=== PATIENT | female | born 1995 | race Caucasian/White ===

== ENCOUNTER 2017-12-09 09:01 | Emergency (ER) | payer SELFPAY ==
[2017-12-09 09:26] VITALS: BP 116/83
--- NOTE | 2017-12-09 09:48 | UC ---
Throat Pain/Nasal Levon HPI - HPI Summary HPI Summary: pain with swallowing for the last week. Difficulty with solids, able to swallow liquids, no fever, chills or change in voice noted - History of Current Complaint Chief Complaint: UCRespiratory Stated Complaint: SORE THROAT,COUGH Time Seen by Provider: 12/09/17 09:14 Hx Obtained From: Patient Hx Last Menstrual Period: 2-3 wks ?: No Onset/Duration: Sudden Onset Severity: Moderate Pain Intensity: 8 Associated Signs & Symptoms: Positive: Dysphagia Related History: Seasonal Allergies, Smoking - Allergies/Home Medications Allergies/Adverse Reactions: Allergies Allergy/AdvReac Type Severity Reaction Status Date / Time latex Allergy Rash Verified 12/09/17 09:04 nickel Allergy Swelling Verified 12/09/17 09:26 Penicillins Allergy Swelling Verified 12/09/17 09:04 Of Face,Lips,& Throat Home Medications: Home Medications Anti-Allergy Med With Pain Med 1 tab PO DAILY 12/09/17 [History Confirmed ] PMH/Surg Hx/FS Hx/Imm Hx Previously Healthy: Yes Other History Of: Negative For: Anticoagulant Therapy - Surgical History Surgical History: Yes Surgery Procedure, Year, and Place: WISDOM TEETH - Social History Alcohol Use: Occasionally Substance Use Type: None Smoking Status (MU): Light Every Day Tobacco Smoker Review of Systems Constitutional: Negative Skin: Negative Eyes: Negative ENT: Other - dysphagia for the last week Respiratory: Cough Motor: Negative Neurovascular: Negative Musculoskeletal: Negative Neurological: Negative Psychological: Negative Is Patient Immunocompromised?: No All Other Systems Reviewed And Are Negative: Yes Physical Exam Triage Information Reviewed: Yes Appearance: Well-Appearing Vital Signs: Initial Vital Signs Temp 36.8 C 12/09/17 09:16 Pulse 115 12/09/17 09:16 Resp 20 12/09/17 09:16 BP 116/83 12/09/17 09:16 Pulse Ox 100 12/09/17 09:16 Vital Signs Reviewed: Yes Eye Exam: Normal Eyes: Positive: Conjunctiva Clear ENT Exam: Normal ENT: Positive: Normal ENT inspection Dental Exam: Normal Neck exam: Normal Respiratory: Positive: Chest non-tender, Lungs clear Cardiovascular Exam: Normal Abdominal Exam: Normal Abdomen Description: Positive: Nontender Bowel Sounds: Positive: Present Musculoskeletal Exam: Normal Neurological Exam: Normal Psychological Exam: Normal Skin Exam: Normal Throat Pain/Nasal Course/Dx - Course Course Of Treatment: lateral neck film shows nodular density superior portion of the epiglottis , possible mucous - Differential Dx/Diagnosis Provider Diagnoses: dysphagia, with abnormality of the epiglottis Discharge - Sign-Out/Discharge Documenting (check all that apply): Patient Departure - Discharge Plan Condition: Good Disposition: HOME Patient Education Materials: Dysphagia (ED) Referrals: Lashaun Nielson NP [Primary Care Provider] - Russ Brower MD [Medical Doctor] - Additional Instructions: given patients persistent and nonworsening symptoms to refer to ENT in the AM for evaluation - Billing Disposition and Condition Condition: GOOD Disposition: Home
--- NOTE | 2017-12-09 10:35 | RAD ---
Indication: Left-sided throat pain and dysphagia Comparison: None. Technique: AP and lateral views of the neck with soft tissue technique. Report: There is a nodular density overlying the epiglottis seen only on the lateral view measuring approximately 1 x 1.8 cm in the sagittal plane. Otherwise the pharyngeal, laryngeal, and tracheal air columns are normal in contour. The epiglottis is normal. The cervical spine and prevertebral soft tissues are normal. IMPRESSION: Questionable nodular density adjacent to the superior posterior aspect of the epiglottis. This finding may simply be mucus in a patient with an upper respiratory infection. Recommend direct visualization. If the patient's symptoms persist, follow-up imaging is recommended.
== END 2017-12-09 10:59 | disposition home or self-care (01) ==
LOC: UCCORT 09:01
DX: R13.10 Dysphagia, unspecified (principal); J38.7 Other diseases of larynx; R05 Cough; J02.9 Acute pharyngitis, unspecified; F17.200 Nicotine dependence, unspecified, uncomplicated; Z91.040 Latex allergy status; Z91.09 Other allergy status, other than to drugs and biological substances; Z88.0 Allergy status to penicillin
CPT/HCPCS: 70360; 99211; G0463

== ENCOUNTER 2017-12-11 10:08 | Emergency (ER) | payer OTHER ==
[2017-12-11 11:09] VITALS: BP 116/72
--- NOTE | 2017-12-11 11:26 | UC ---
Eye Complaint HPI - HPI Summary HPI Summary: right eye redness and discharge x 1 day no eye pain , + itchy no change if vision - History of Current Complaint Chief Complaint: UCEye Stated Complaint: RIGHT EYE COMPLAINT Time Seen by Provider: 12/11/17 11:02 Hx Obtained From: Patient Hx Last Menstrual Period: 11/20/17 Onset/Duration: Gradual Onset, Lasting Days - 1, Still Present Timing: Constant Severity Initially: Moderate Severity Currently: Moderate Pain Intensity: 0 Location of Injury: Conjunctiva Aggravating Factor(s): Nothing Alleviating Factor(s): Nothing Associated Signs And Symptoms: Positive: Drainage (Purulent) - right eye. Negative: Photophobia, Drainage (Clear), Vision Impairment Bilateral, Vision Impairment Right, Vision Impairment Left - Allergies/Home Medications Allergies/Adverse Reactions: Allergies Allergy/AdvReac Type Severity Reaction Status Date / Time latex Allergy Rash Verified 12/11/17 11:10 nickel Allergy Swelling Verified 12/11/17 11:10 Penicillins Allergy Swelling Verified 12/11/17 11:10 Of Face,Lips,& Throat PMH/Surg Hx/FS Hx/Imm Hx - Additional Past Medical History Additional PMH: hearing loss, allergies Other History Of: Negative For: Anticoagulant Therapy - Surgical History Surgical History: None Surgery Procedure, Year, and Place: WISDOM TEETH - Family History Known Family History: Negative: Diabetes - Social History Alcohol Use: Occasionally Substance Use Type: None Smoking Status (MU): Heavy Every Day Tobacco Smoker Type: Cigarettes Amount Used/How Often: 1/2 ppd Length of Time of Smoking/Using Tobacco: since age 18 Have You Smoked in the Last Year: Yes Review of Systems Constitutional: Negative Skin: Negative Eyes: Drainage, Eye Redness ENT: Negative Is Patient Immunocompromised?: No All Other Systems Reviewed And Are Negative: Yes Physical Exam Triage Information Reviewed: Yes Appearance: Well-Appearing, No Pain Distress, Well-Nourished Vital Signs: Initial Vital Signs Temp 98 F 12/11/17 10:57 Pulse 121 12/11/17 10:57 Resp 18 12/11/17 10:57 BP 116/72 12/11/17 10:57 Pulse Ox 100 12/11/17 10:57 Eye Exam: Normal Eyes: Positive: Conjunctiva Inflamed - right eye, Discharge - right eye ENT: Positive: Normal ENT inspection, Hearing grossly normal, Pharynx normal Neck exam: Normal Neck: Positive: Supple, Nontender, No Lymphadenopathy Respiratory: Positive: Chest non-tender, Lungs clear, Normal breath sounds, No respiratory distress Cardiovascular: Positive: RRR, No Murmur, Pulses Normal Musculoskeletal Exam: Normal Neurological Exam: Normal Eye Complaint Course/Dx - Differential Dx/Diagnosis Provider Diagnoses: conjunctivitis right eye Discharge - Sign-Out/Discharge Documenting (check all that apply): Patient Departure - Discharge Plan Condition: Stable Disposition: HOME Prescriptions: Gentamicin 0.3% OPHTH.SOLN* 1 drop RIGHT EYE Q4H #1 btl Patient Education Materials: Conjunctivitis (ED) Forms: *Work Release Referrals: Lashaun Nielson NP [Primary Care Provider] - If Needed - Billing Disposition and Condition Condition: STABLE Disposition: Home
== END 2017-12-11 11:29 | disposition home or self-care (01) ==
LOC: UCCORT 10:08
DX: H10.9 Unspecified conjunctivitis (principal); Z88.0 Allergy status to penicillin; F17.210 Nicotine dependence, cigarettes, uncomplicated
CPT/HCPCS: 99212; G0463

== ENCOUNTER 2018-05-08 08:27 | Emergency (ER) | payer SELFPAY ==
[2018-05-08 08:47] VITALS: BP 130/92
--- NOTE | 2018-05-08 08:58 | UC ---
General HPI - HPI Summary HPI Summary: C/O sore throat and congestion for the past 3 days. +chills. Subjective fever. +cough. No sick contacts. Difficulty swallowing solids. Adequate liquid intake. Had some abdominal discomfort yesterday. No N/V/D. No rash. No sick contacts. No urinary symptoms. PMHx and meds: reviewed - History of Current Complaint Chief Complaint: UCGeneralIllness Stated Complaint: SORE THROAT Time Seen by Provider: 05/08/18 08:42 Hx Last Menstrual Period: Pain Intensity: 6 - Allergy/Home Medications Allergies/Adverse Reactions: Allergies Allergy/AdvReac Type Severity Reaction Status Date / Time latex Allergy Rash Verified 05/08/18 08:38 nickel Allergy Swelling Verified 05/08/18 08:38 Penicillins Allergy Swelling Verified 05/08/18 08:38 Of Face,Lips,& Throat PMH/Surg Hx/FS Hx/Imm Hx Previously Healthy: Yes Other History Of: Negative For: Anticoagulant Therapy - Surgical History Surgical History: None Surgery Procedure, Year, and Place: WISDOM TEETH - Family History Known Family History: Negative: Diabetes - Social History Alcohol Use: Occasionally Substance Use Type: None Smoking Status (MU): Heavy Every Day Tobacco Smoker Type: Cigarettes Amount Used/How Often: 1/2 ppd Length of Time of Smoking/Using Tobacco: since age 18 Have You Smoked in the Last Year: Yes Review of Systems All Other Systems Reviewed And Are Negative: Yes Is Patient Immunocompromised?: No - Comments Additional Review of Systems Comments: As mentioned in HPI Physical Exam Triage Information Reviewed: Yes Appearance: Well-Appearing Vital Signs: Initial Vital Signs Temp 97.8 F 05/08/18 08:41 Pulse 109 05/08/18 08:41 Resp 16 05/08/18 08:41 BP 130/92 05/08/18 08:41 Pulse Ox 99 05/08/18 08:41 Eyes: Positive: Conjunctiva Clear ENT: Positive: Pharyngeal erythema, Nasal congestion, Tonsillar swelling Neck exam: Normal Neck: Positive: Enlarged Nodes @ - anterior cervical chain Respiratory: Positive: Chest non-tender, Normal breath sounds, No respiratory distress Cardiovascular: Positive: RRR, No Murmur Abdomen Description: Positive: Nontender, Soft Course/Dx - Course Course Of Treatment: This is a 23 yr old with sore throat. Assesment. Strep throat: positive. Group A strep pharyngitis. Plan. Start Antibiotics as prescribed. Continue to drink plenty of fluids. Continue ibuprofen as needed as directed for pain/fever. Can return to work after 24 hours on antibiotics. If symptoms persist or worsen, call primary for further evaluation - Diagnoses Provider Diagnosis: Pharyngitis due to group A beta hemolytic Streptococci Discharge - Sign-Out/Discharge Documenting (check all that apply): Patient Departure All imaging exams completed and their final reports reviewed: No - Discharge Plan Condition: Good Disposition: HOME Prescriptions: Azithromycin TAB* [Zithromax TAB (Z-YAIR) 250 mg #6 tabs] 500 mg PO DAILY #5 tab Patient Education Materials: Strep Throat (DC) Forms: *Work Release Referrals: Lashaun Nielson NP [Primary Care Provider] - Additional Instructions: Start Antibiotics as prescribed Continue to drink plenty of fluids Continue ibuprofen as needed as directed for pain/fever Can return to work after 24 hours on antibiotics If symptoms persist or worsen, call primary for further evaluation - Billing Disposition and Condition Condition: GOOD Disposition: Home
--- NOTE | 2018-05-09 11:04 | UC ---
- Progress Note Progress Note: There was no x-ray ordered on May 08, 2018 therefore there is no discrepancy. Course/Dx - Diagnoses Provider Diagnoses: Pharyngitis due to group A beta hemolytic Streptococci Discharge - Sign-Out/Discharge Documenting (check all that apply): Patient Departure All imaging exams completed and their final reports reviewed: Yes - Discharge Plan Condition: Good Disposition: HOME Prescriptions: Azithromycin TAB* [Zithromax TAB (Z-YAIR) 250 mg #6 tabs] 500 mg PO DAILY #5 tab Patient Education Materials: Strep Throat (DC) Forms: *Work Release Referrals: Lashaun Nielson NP [Primary Care Provider] - Additional Instructions: Start Antibiotics as prescribed Continue to drink plenty of fluids Continue ibuprofen as needed as directed for pain/fever Can return to work after 24 hours on antibiotics If symptoms persist or worsen, call primary for further evaluation - Billing Disposition and Condition Condition: GOOD Disposition: Home
--- NOTE | 2018-05-09 11:07 | UC ---
- Progress Note Progress Note: . Course/Dx - Diagnoses Provider Diagnoses: Pharyngitis due to group A beta hemolytic Streptococci Discharge - Sign-Out/Discharge Documenting (check all that apply): Patient Departure All imaging exams completed and their final reports reviewed: No Studies - Discharge Plan Condition: Good Disposition: HOME Prescriptions: Azithromycin TAB* [Zithromax TAB (Z-YAIR) 250 mg #6 tabs] 500 mg PO DAILY #5 tab Patient Education Materials: Strep Throat (DC) Forms: *Work Release Referrals: Lashaun Nielson NP [Primary Care Provider] - Additional Instructions: Start Antibiotics as prescribed Continue to drink plenty of fluids Continue ibuprofen as needed as directed for pain/fever Can return to work after 24 hours on antibiotics If symptoms persist or worsen, call primary for further evaluation - Billing Disposition and Condition Condition: GOOD Disposition: Home
== END 2018-05-08 09:38 | disposition home or self-care (01) ==
LOC: UCEAST 08:27
DX: J02.0 Streptococcal pharyngitis (principal); B95.0 Streptococcus, group A, as the cause of diseases classified elsewhere; Z88.0 Allergy status to penicillin
CPT/HCPCS: 84702; 87651; 99212; G0463

== ENCOUNTER 2018-07-15 10:55 | Emergency (ER) | payer OTHER ==
[2018-07-15 11:22] VITALS: BP 123/74
[2018-07-15 13:08] LABS: Influenza A Molecular NEGATIVE (Negative); Influenza B Molecular NEGATIVE (Negative)
--- NOTE | 2018-07-15 13:10 | ED ---
GI/ HPI - HPI Summary HPI Summary: 23 year old female presents with nausea for the past couple days. she is concerned she is or has the flu. she admits to occasionally epigastric pain but none currently. she admits to occasionally headache but not now. she states has occasionally acid reflux symptoms. denies any diarrhea or urinary symptoms. has an iud in place. no fever or sore throat. - History of Current Complaint Chief Complaint: UCAbdominalPain Time Seen by Provider: 07/15/18 12:58 Stated Complaint: STOMACH ISSUES Hx Last Menstrual Period: 06/10/18 Pain Intensity: 3 - Allergy/Home Medications Allergies/Adverse Reactions: Allergies Allergy/AdvReac Type Severity Reaction Status Date / Time latex Allergy Rash Verified 07/15/18 11:22 nickel Allergy Swelling Verified 07/15/18 11:22 Penicillins Allergy Swelling Verified 07/15/18 11:22 Of Face,Lips,& Throat PMH/Surg Hx/FS Hx/Imm Hx Endocrine/Hematology History: Denies: Hx Anticoagulant Therapy, Hx Diabetes, Hx Thyroid Disease Cardiovascular History: Denies: Hx Hypertension Respiratory History: Denies: Hx Asthma, Hx Chronic Obstructive Pulmonary Disease (COPD) GI History: Denies: Hx Ulcer - Surgical History Surgery Procedure, Year, and Place: WISDOM TEETH Infectious Disease History: No Infectious Disease History: Denies: Hx Hepatitis, Hx Human Immunodeficiency Virus (HIV), Traveled Outside the [place] in Last 30 Days - Family History Known Family History: Negative: Diabetes - Social History Alcohol Use: Occasionally Substance Use Type: Reports: None Hx Tobacco Use: Yes Smoking Status (MU): Heavy Every Day Tobacco Smoker Type: Cigarettes Amount Used/How Often: 1/2 ppd Length of Time of Smoking/Using Tobacco: since age 18 Have You Smoked in the Last Year: Yes Review of Systems Negative: Fever Negative: Chest Pain Negative: Shortness Of Breath Positive: Abdominal Pain - occassionally, Vomiting, Nausea. Negative: Diarrhea Positive: Headache All Other Systems Reviewed And Are Negative: Yes Physical Exam Triage Information Reviewed: Yes Vital Signs On Initial Exam: Initial Vitals Temp Pulse Resp BP Pulse Ox 97.6 F 101 18 123/74 100 07/15/18 11:18 07/15/18 11:18 07/15/18 11:18 07/15/18 11:18 07/15/18 11:18 Vital Signs Reviewed: Yes Appearance: Positive: Well-Appearing Skin: Positive: Warm, Dry Head/Face: Positive: Normal Head/Face Inspection Eyes: Positive: Normal, Conjunctiva Clear ENT: Positive: Pharynx normal Respiratory/Lung Sounds: Positive: Clear to Auscultation, Breath Sounds Present Cardiovascular: Positive: Normal, RRR Abdomen Description: Positive: Nontender, Soft Bowel Sounds: Positive: Present Musculoskeletal: Positive: Normal Neurological: Positive: Normal Psychiatric: Positive: Normal Diagnostics - Vital Signs Vital Signs Temp Pulse Resp BP Pulse Ox 07/15/18 11:18 97.6 F 101 18 123/74 100 - Laboratory Lab Results: Lab Results 07/15/18 07/15/18 07/15/18 Range/Units 12:55 12:56 12:59 POC Urine Color Yellow POC Urine Clarity Clear POC Urine pH 5.5 (5-9) POC Ur Specif Lindstrom >= 1.030 (1.010-1.030) POC Urine Protein Negative (Negative) POC Ur Glucose (UA) Negative (Negative) POC Urine Ketones Trace A (Negative) POC Urine Blood Negative (Negative) POC Urine Nitrite Negative (Negative) POC Urine Bilirubin Negative (Negative) POC Urine Urobilinogen 0.2 (Negative) POC U Leukocyte Esteras Negative (Negative) POC Ur Test Negative (Negative) Influenza A (Rapid) Negative (Negative) Influenza B (Rapid) Negative (Negative) Lab Statement: Any lab studies that have been ordered have been reviewed, and results considered in the medical decision making process. GIGU Course/Dx - Course Course Of Treatment: 23 year old female presents with nausea for the past couple days. she is concerned she is or has the flu. she admits to occasionally epigastric pain but none currently. she admits to occasionally headache but not now. she states has occasionally acid reflux symptoms. denies any diarrhea or urinary symptoms. has an iud in place. no fever or sore throat. on exam abd soft nontender. normal neuro exam. flu neg. urine normal. urine preg neg. discussed will add zofran for nausea. also suggest try an antacid as may be acid reflux related. patient understand and agrees with plan. - Diagnoses Differential Diagnoses - Female: Gastroenteritis (Viral), Gastroenteritis ( Bacterial), Vomiting Provider Diagnoses: Nausea Discharge - Sign-Out/Discharge Documenting (check all that apply): Patient Departure All imaging exams completed and their final reports reviewed: No Studies - Discharge Plan Condition: Good Disposition: HOME Prescriptions: Ondansetron ODT TAB* [Zofran 4 MG Odt TAB*] 4 mg PO Q6H PRN #20 tab.odt PRN Reason: Nausea Patient Education Materials: Acute Nausea and Vomiting (ED) Forms: *Work Release Referrals: Lashaun Nielson EVENT SET UP SPECIALIST [Primary Care Provider] - Additional Instructions: Can take Zofran every 6 hours as needed for nausea may want to try an antacid Drink small amounts of fluid as tolerated Take ibuprofen or Tylenol for pain as needed every 6 hours Follow up with primary within 5 days Return to ED if develop any new or worsening symptoms - Billing Disposition and Condition Condition: GOOD Disposition: Home - Attestation Statements Provider Attestation: Per institutional requirements, I have reviewed the chart, however, I was not consulted specifically or made aware of this patient by the midlevel provider. I did not personally evaluate, interact with , or disposition this patient.
== END 2018-07-15 13:24 | disposition home or self-care (01) ==
LOC: UCEAST 10:55
DX: R11.0 Nausea (principal); R10.13 Epigastric pain; Z32.02 Encounter for pregnancy test, result negative; Z91.040 Latex allergy status; Z88.0 Allergy status to penicillin; Z91.048 Other nonmedicinal substance allergy status; F17.210 Nicotine dependence, cigarettes, uncomplicated
CPT/HCPCS: 81003; 84702; 99212; G0463

== ENCOUNTER 2019-02-25 19:55 | Emergency (ER) | payer OTHER ==
--- NOTE | 2019-02-25 21:04 | ED ---
Lower Extremity - HPI Summary HPI Summary: Pt is a 23 y/o F presenting to the ED with a chief complaint of R foot pain. She states she slipped on water on the floor, is unsure how she landed, but she thinks her R foot is broken. She cannot bear weight, denies head injury or LOC. She also c/o a bruise on her R knee. She took 1,000mg Tylenol HEALTH AND WELLNESS DIRECTOR w/o relief. - History of Current Complaint Chief Complaint: EDExtremityLower Stated Complaint: FOOT INJURY PER PT Time Seen by Provider: 02/25/19 20:36 Hx Obtained From: Patient Hx Last Menstrual Period: 06/10/18 Mechanism Of Injury: Fall From A Standing Position Onset of Pain: Immediate Onset/Duration: Still Present Severity Initially: Moderate Severity Currently: Moderate Pain Intensity: 5 Pain Scale Used: 0-10 Numeric Timing: Constant, Lasting Hours Location: Is Discrete @ - R foot Associated Signs And Symptoms: Positive: Bruising, Knee Pain Aggravating Factor(s): Movement, Weight Bearing Alleviating Factor(s): Nothing Able to Bear Weight: No - Allergies/Home Medications Allergies/Adverse Reactions: Allergies Allergy/AdvReac Type Severity Reaction Status Date / Time latex Allergy Rash Verified 02/25/19 20:56 nickel Allergy Swelling Verified 02/25/19 20:56 Penicillins Allergy Swelling Verified 02/25/19 20:56 Of Face,Lips,& Throat PMH/Surg Hx/FS Hx/Imm Hx Previously Healthy: Yes Endocrine/Hematology History: Denies: Hx Anticoagulant Therapy, Hx Diabetes, Hx Thyroid Disease Cardiovascular History: Denies: Hx Hypertension Respiratory History: Denies: Hx Asthma, Hx Chronic Obstructive Pulmonary Disease (COPD) GI History: Denies: Hx Ulcer - Surgical History Surgery Procedure, Year, and Place: WISDOM TEETH Infectious Disease History: No Infectious Disease History: Denies: Hx Hepatitis, Hx Human Immunodeficiency Virus (HIV), Traveled Outside the [place] in Last 30 Days - Family History Known Family History: Negative: Diabetes - Social History Alcohol Use: Occasionally Hx Substance Use: No Substance Use Type: Reports: None Hx Tobacco Use: Yes Smoking Status (MU): Heavy Every Day Tobacco Smoker Type: Cigarettes Amount Used/How Often: 1/2 ppd Length of Time of Smoking/Using Tobacco: since age 18 Have You Smoked in the Last Year: Yes Review of Systems Positive: Arthralgia, Myalgia Positive: Bruising Neurological: Negative - head injury, LOC All Other Systems Reviewed And Are Negative: Yes Physical Exam - Summary Physical Exam Summary: Constitutional: Well-developed, Well-nourished, Alert. (-) Distressed Skin: Warm, Dry HENT: Normocephalic; Atraumatic Eyes: Conjunctiva normal Neck: Musculoskeletal ROM normal neck. (-) JVD, (-) Stridor, (-) Tracheal deviation Cardio: Rhythm regular, rate normal, Heart sounds normal; Intact distal pulses; The pedal pulses are 2+ and symmetric. Radial pulses are 2+ and symmetric. (-) Murmur Pulmonary/Chest wall: Effort normal. (-) Respiratory distress, (-) Wheezes, (-) Rales Abd: Soft, (-) tenderness, (-) Distension, (-) Guarding, (-) Rebound Musculoskeletal: R foot erythema and edema in the mid-foot. Limited ROM with foot eversion and inversion. Tenderness in mid-foot. No proximal tenderness. DP/ PT pulses 2+. Lymph: (-) Cervical adenopathy Neuro: Alert, Oriented x3 Psych: Mood and affect Normal Triage Information Reviewed: Yes Vital Signs On Initial Exam: Initial Vitals Temp Pulse Resp BP Pulse Ox 98.5 F 100 16 121/60 100 02/25/19 19:57 02/25/19 19:57 02/25/19 19:57 02/25/19 19:57 02/25/19 19:57 Vital Signs Reviewed: Yes Procedures - Sedation Patient Received Moderate/Deep Sedation with Procedure: No Diagnostics - Vital Signs Vital Signs Temp Pulse Resp BP Pulse Ox 02/25/19 19:57 98.5 F 100 16 121/60 100 - Laboratory Lab Statement: Any lab studies that have been ordered have been reviewed, and results considered in the medical decision making process. - Radiology Foot XR Radiology Interpretation Completed By: ED Physician Summary of Radiographic Findings: Fracture to distal phalanx of the fifth metatarsal. No intra-articular involvement. Pending official radiology report. Lower Extremity Course/Dx - Course Course Of Treatment: Patient is here with a foot injury. Patient had an x-ray which showed a distal metatarsal fracture on the fifth toe. Patient was placed in a cam boot, made nonweightbearing, given crutches, and given orthopedic surgery follow-up. - Diagnoses Provider Diagnoses: Metatarsal fracture Discharge ED - Sign-Out/Discharge Documenting (check all that apply): Patient Departure - Discharge Plan Condition: Stable Disposition: HOME Prescriptions: traMADol TAB* [Ultram*] 50 mg PO Q8HR PRN #12 tab MDD 150 mg PRN Reason: Pain - Severe Patient Education Materials: Foot Fracture in Adults (ED) Forms: *Work Release Referrals: Lashaun Nielson NP [Primary Care Provider] - Russell Magallon MD [Medical Doctor] - Additional Instructions: Please follow up with Dr. Magallon of Orthopedics about your fractured foot. Take Ibuprofen as needed for pain, and if that does not work, take the pain medication prescribed to you as instructed. Please use your crutches to take the weight bearing off of your R foot. Return to the emergency department with any new or worsening symptoms, including fever or shortness of breath. - Billing Disposition and Condition Condition: STABLE Disposition: Home - Attestation Statements Document Initiated by Caibe: Yes Documenting Scribe: Sunshine Dodson Provider For Whom Hoa is Documenting (Include Credential): Angelito Brandon MD. Scribe Attestation: Sunshine Chairez, scribed for Angelito Brandon MD. on 02/25/19 at 2142. Scribe Documentation Reviewed: Yes Provider Attestation: The documentation as recorded by the scribe, Sunshine Dodson accurately reflects the service I personally performed and the decisions made by , Angelito Brandon MD. Status of Scribe Document: Viewed
[2019-02-25] MEDS: oxyCODONE TAB* 5 MG TAB PO ONE (21:49)
[2019-02-25 21:54] VITALS: BP 118/60
== END 2019-02-25 21:37 | disposition home or self-care (01) ==
LOC: ED 19:55
DX: S92.354A Nondisplaced fracture of fifth metatarsal bone, right foot, initial encounter for closed fracture (principal); W01.0XXA Fall on same level from slipping, tripping and stumbling without subsequent striking against object, initial encounter; Y92.9 Unspecified place or not applicable; F17.210 Nicotine dependence, cigarettes, uncomplicated; Z88.0 Allergy status to penicillin; Z91.040 Latex allergy status
CPT/HCPCS: 99282; A9270-GY

== ENCOUNTER 2019-06-14 18:15 | Emergency (ER) | payer SELFPAY ==
--- OUTSIDE RECORDS SUMMARY | 2019-06-14 18:31 | XMS REPORT | Continuity of Care Document ---
:1995 External Reference #:[id number] Author Name Manuelito Winter MD Address [address] [place] [id number] Problems Active Problems Provider Date Obsessive-compulsive disorder Onset: 09/02/2018 Tobacco dependence syndrome Onset: 08/19/2018 Adult health examination Onset: 08/19/2018 Smoker Manuelito Winter MD Onset: 05/09/2019 Social History Type Date Description Comments Sex Unknown Tobacco Use Start: Unknown Patient is a current smoker, smokes every day Smoking Status Reviewed: 05/09/19 Patient is a current smoker, smokes every day Allergies, Adverse Reactions, Alerts Active Allergies Reaction Severity Comments Date Latex Disorder of skin 01/31/2019 Nickel swelling 01/31/2019 Penicillin hospitalization 01/31/2019 Medications Active Medications SIG Qnty Indications Ordering Provider Date Famciclovir 1 po tid 21tabs Manuelito Winter MD 05/09/2019 250mg Tablets Sleep Aid ASTRID Gusman 02/05/2019 25mg Capsules Prozac 1 every morning 30caps Unknown 09/03/2018 20mg Capsules Oral Multiple Vitamin 1 daily Oral 30tabs Unknown 08/19/2018 Tablets Zinc 1 tab by mouth Unknown 25mg Tablets every day Immunizations CPT Code Status Date Vaccine Lot # [id number] Given 05/09/2019 Flu < 65 years [id number] Vital Signs Date Vital Result Comment 05/09/2019 12:09pm BP Systolic 110 mmHg BP Diastolic 56 mmHg Height 59.75 inches 4'11.75" Weight 109.00 lb Heart Rate 112 /min Body Temperature 99.5 F O2 % BldC Oximetry 98 % BMI (Body Mass Index) 21.5 kg/m2 02/05/2019 1:22pm BP Systolic 110 mmHg BP Diastolic 50 mmHg Weight 113.00 lb Heart Rate 116 /min Body Temperature 99.5 F O2 % BldC Oximetry 98 % Results Description No Information Available Procedures Date Code Description Status 05/09/2019 04573 Brief Emotional/Behav Assessment W/ Scoring Doc Per Completed Standard Inst Medical Devices Description No Information Available Encounters Type Date Location Provider Dx Diagnosis Office Visit 05/09/2019 12:00p [facility] Manuelito Winter MD B00.9 Herpesviral infection, unspecified F17.200 Nicotine dependence, unspecified, uncomplicated Office Visit 02/05/2019 1:15p [facility] Main Gina Sheffield, [facility] G47.00 Insomnia, unspecified J30.9 Allergic rhinitis, unspecified Assessments Date Code Description Provider 05/09/2019 B00.9 Herpes simplex without complication Manuelito Winter MD 05/09/2019 F17.200 Smoker Manuelito Winter MD 02/05/2019 G47.00 Insomnia, unspecified Gina Sheffield, S[employer]IOR PROJECT COORDINATOR 02/05/2019 J30.9 Allergic rhinitis, unspecified Gina Sheffield, SENIOR PROJECT COORDINATOR Plan of Treatment 05/09/2019 - Manuelito Winter MDB00.9 Herpes simplex without udmtppioejzvT00.200 SmokerAllNew Medication:Famciclovir 250 mg - 1 po tid Functional Status Description No Information Available Mental Status Description No Information Available Referrals Description No Information Available
--- OUTSIDE RECORDS SUMMARY | 2019-06-14 18:31 | XMS REPORT | Continuity of Care Document ---
:1996 External Reference #:[id number] Author Name Dung Liu M.D. (transmitted by agent of provider Bibiana Bhagat) Address [address] [place] [id number] Care Team Providers Name Role Phone Patient's Choice Care Team Information Household Appliances Service Technician Unavailable Problems Description No Information Available Social History Type Date Description Comments Sex Unknown ETOH Use Rarely consumes alcohol Tobacco Use Start: Unknown Light tobacco smoker (10 or fewer cigarettes/day) Smoking Status Reviewed: 04/22/19 Light tobacco smoker (10 or fewer cigarettes/day) Allergies, Adverse Reactions, Alerts Active Allergies Reaction Severity Comments Date Penicillin 03/11/2019 Nickel 03/11/2019 Latex 03/11/2019 Medications Active Medications SIG Qnty Indications Ordering Provider Date Sleep Aid Gummies Unknown Immunizations Description No Information Available Vital Signs Date Vital Result Comment 04/22/2019 11:09am Height 59 inches 4'11" Weight 113.00 lb Heart Rate 111 /min Body Temperature 99.2 F Pain Level 7 O2 % BldC Oximetry 98 % BMI (Body Mass Index) 22.8 kg/m2 04/01/2019 9:59am Height 59 inches 4'11" Weight 113.00 lb stated per pt request Heart Rate 78 /min BP Systolic 98 mmHg BP Diastolic 62 mmHg Respiratory Rate 16 /min Body Temperature 99.9 F Pain Level 7 #8/ambulating BMI (Body Mass Index) 22.8 kg/m2 Results Description No Information Available Procedures Description No Information Available Medical Devices Description No Information Available Encounters Type Date Location Provider Dx Diagnosis Office Visit 04/01/2019 [place] [facility] Liu S92.351A [facility], [facility], init Office Visit 03/11/2019 [facility] Dung Noe, S92.351A Disp fx of fifth 9:00a at [place] Harish metatarsal bone, right foot, init S92.354A Nondisp fx of fifth metatarsal bone, right foot, init Assessments Date Code Description Provider 04/22/2019 S92.351D Displaced fracture of fifth metatarsal bone, Dung Liu M.D. right foot, subsequent encounter for fracture with routine healing 04/01/2019 S92.351A Displaced fracture of fifth metatarsal bone, Dung Liu M.D. right foot, initial encounter for closed fracture 03/11/2019 S92.351A Displaced fracture of fifth metatarsal bone, Dung Liu M.D. right foot, initial encounter for closed fracture 03/11/2019 S92.354A Nondisplaced fracture of fifth metatarsal Dung Liu M.D. bone, right foot, initial encounter for closed fracture Plan of Treatment 04/22/2019 - Dung Liu M.D.S92.351D Displaced fracture of fifth metatarsal bone, right foot, subsequent encounter for fracture with routine healingNew Xrays:Foot Right 3+ VWS, Ordered: 04/22/19Follow up:As needed Functional Status Description No Information Available Mental Status Description No Information Available Referrals Description No Information Available
--- OUTSIDE RECORDS SUMMARY | 2019-06-14 18:31 | XMS REPORT | Continuity of Care Document ---
:1996 External Reference #:[id number] Author Name Manuelito Winter MD (transmitted by agent of provider Delaney Camilo) Address [address] [place] [address] Problems Active Problems Provider Date Obsessive-compulsive disorder Onset: 09/02/2018 Tobacco dependence syndrome Onset: 08/19/2018 Adult health examination Onset: 08/19/2018 Social History Type Date Description Comments Sex [...] CPT Code Status Date Vaccine Lot # [id number] Given 05/09/2019 Flu < 65 years [id number] Vital Signs Date Vital Result Comment 05/09/2019 [...] Available Procedures Date Code Description Status 05/09/2019 87256 Brief Emotional/Behav Assessment W/ Scoring Doc Per Completed Standard Inst Medical Devices Description No Information Available Encounters Type Date Location Provider Dx Diagnosis Office Visit 02/05/2019 1:15p [facility] Gina Aittama, [employer] G47.00 Insomnia, unspecified J30.9 Allergic rhinitis, unspecified Assessments Date Code Description Provider 02/05/2019 G47.00 Insomnia, unspecified Gina Aittama, [employer] 02/05/2019 J30.9 Allergic rhinitis, unspecified Gina Aittama, [employer] Plan of Treatment 05/09/2019 - Chace Sánchez Medication:Famciclovir 250 mg - 1 po tid Functional Status Description No Information Available Mental Status Description No Information Available Referrals Description No Information Available
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
[2019-06-14 19:13] VITALS: BP 127/68
== END 2019-06-14 19:10 | disposition home or self-care (01) ==
LOC: ED 18:15
DX: S16.1XXA Strain of muscle, fascia and tendon at neck level, initial encounter (principal); R51 Headache; V47.5XXA Car driver injured in collision with fixed or stationary object in traffic accident, initial encounter; Y92.410 Unspecified street and highway as the place of occurrence of the external cause
CPT/HCPCS: 99282